=== PATIENT | male | born 1965 | race Caucasian/White ===

== ENCOUNTER 2024-03-01 12:57 | Emergency (ER) | payer OTHER ==
[~2024-03-01] VITALS: Ht 172.7 cm; Wt 74.8 kg
[2024-03-01 13:01] VITALS: O2SAT 99
[2024-03-01] MEDS ORDERED: LIDOCAINE HCL 1% 20ML VIAL INFIL ONE (13:15)
[2024-03-01] MEDS: MORPHINE SULFATE 4 MG/ML INJ (FOR IV/IM USE) IV ONE (13:41)
[2024-03-01] MEDS: TETANUS AND DIPHTHERIA TOX/PF 0.5ML SYR (ADULT) IM ONE (13:57)
[2024-03-01] MEDS: CEFAZOLIN 1000MG PREMIX 50 ML IV ONE (13:57)
[2024-03-01 14:07] LABS: BASOPHILS % 1.4 % (0.0-2.0); EOSINOPHILS % 1.6 % (0.0-5.0); HEMATOCRIT. 45.4 % (42.0-52.0); HEMOGLOBIN. 15.2 g/dL (14.0-18.0); LYMPHOCYTES % 22.1 % (20.0-50.0); MEAN CORPUSCULAR HGB CONC 33.6 g/dL (31.0-37.0); MEAN CORPUSCULAR VOLUME 98.3 fL (80.0-94.0); MEAN PLATELET VOLUME 9.3 fl (7.4-10.4); MONOCYTES % 6.2 % (2.0-8.0); NEUTROPHILS % 68.7 % (40.0-76.0); PLATELET 253 x1000/uL (130-400); RED BLOOD CELL COUNT 4.62 mill/uL (4.7-6.1); RED CELL DISTRIBUTION WIDTH 12.9 % (11.6-14.6); WHITE BLOOD COUNT 8.7 x1000/uL (4.5-11.0)
[2024-03-01 14:10] LABS: CHLORIDE 108 mEq/L (98-107); SODIUM 140 mEq/L (136-145)
[2024-03-01 14:12] LABS: CARBON DIOXIDE 24 mEq/L (21-32)
[2024-03-01 14:17] LABS: CREATININE 0.9 mg/dL (0.6-1.3); GLUCOSE 105 mg/dL (70-105); UREA NITROGEN BLOOD 14 mg/dL (9-23)
[2024-03-01 14:19] LABS: ALANINE AMINOTRANSFERASE 39 IU/L (10-49); ALBUMIN 4.7 g/dL (3.2-4.8); ASPARTATE AMINOTRANSFERASE 33 IU/L (<34); BILIRUBIN DIRECT 0.3 mg/dL (<=3.0); BILIRUBIN TOTAL 0.9 mg/dL (0.1-1.0); PROTEIN TOTAL 7.1 g/dL (6.0-8.3)
[2024-03-01 14:30] VITALS: BP 149/86; PULSE 65; RESP 14; TEMP 36.72516; O2SAT 97
== END 2024-03-01 14:49 | disposition short-term general hospital (02) ==
LOC: ER 12:57
DX: M54.50 Low back pain, unspecified (principal); M79.605 Pain in left leg; J45.909 Unspecified asthma, uncomplicated; F17.200 Nicotine dependence, unspecified, uncomplicated
CPT/HCPCS: 80076; 80048; 85025; 86850; 86900; 86901; 87040; 36415; 71045; 90714; 90471; 96365; 96375; 99291; J0690; J2270; Z7610 ×3; J3490